=== PATIENT | male | born 1960 | race Caucasian/White ===

== ENCOUNTER 2024-04-28 16:32 | Emergency (ER) | payer SELFPAY ==
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
[2024-04-28 16:45] VITALS: BP 186/78; BP 191/90; PULSE 73; PULSE 86; RESP 20; TEMP 36.7; O2SAT 97; O2SAT 98; BMI 30.7
[2024-04-28 18:31] VITALS: BP 150/58; PULSE 71; RESP 18; TEMP 36.7; O2SAT 95
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
[2024-04-28] MEDS: Diphth,Pertus(ACell),Tet Adult 0.5 ML SYRINGE IM (20:02)
[2024-04-28 20:39] VITALS: BP 169/68; PULSE 64; RESP 16; TEMP 36.8; O2SAT 96
[2024-04-28 21:29] VITALS: BP 169/68; PULSE 64; RESP 16; TEMP 36.8; O2SAT 96
== END 2024-04-28 21:30 | disposition home or self-care (01) ==
PROVIDERS: Emergency Provider Internal Medicine; PCP Family Medicine
DX: S01.01XA Laceration without foreign body of scalp, initial encounter (principal); R51.9 Headache, unspecified; M54.2 Cervicalgia; V43.52XA Car driver injured in collision with other type car in traffic accident, initial encounter; Y93.9 Activity, unspecified; Y92.488 Other paved roadways as the place of occurrence of the external cause; Y99.8 Other external cause status; Z23 Encounter for immunization
CPT/HCPCS: 12034; 70450; 72125; 90471; 90715; 99282; 99284